=== PATIENT | male | born 1990 | race Asian ===

== ENCOUNTER 2019-05-17 20:06 | Emergency (ER) | payer MEDICAID ==
[~2019-05-17] VITALS: Ht 165.1 cm; Wt 155.0 kg
[2019-05-17] MEDS ORDERED: IBUPROFEN 400MG TABLET PO ONE (23:00)
[2019-05-17 23:22] VITALS: BP 125/63
== END 2019-05-17 23:21 | disposition home or self-care (01) ==
LOC: ER 20:06
DX: J06.9 Acute upper respiratory infection, unspecified (principal); J45.909 Unspecified asthma, uncomplicated
CPT/HCPCS: 99282